=== PATIENT | female | born 2000 | race Caucasian/White ===

== ENCOUNTER 2020-09-19 20:41 | Emergency (ER) | payer OTHER | END 2020-09-19 22:24 | disposition home or self-care (01) | LOC: ER1 20:41 | DX: S80.212A Abrasion, left knee, initial encounter (principal); Z23 Encounter for immunization; V29.9XXA Motorcycle rider (driver) (passenger) injured in unspecified traffic accident, initial encounter; Y92.410 Unspecified street and highway as the place of occurrence of the external cause | CPT/HCPCS: 73030; 90715; 99283 ==